=== PATIENT | female | born 1995 | race Caucasian/White ===

== ENCOUNTER 2023-08-08 12:46 | Outpatient (CLI) | payer MEDICAID | END 2023-08-08 12:47 | disposition critical access hospital (66) | LOC: EMS 12:46 | DX: U07.1 COVID-19 (principal) | CPT/HCPCS: A0425; A0427; A0999 ==

== ENCOUNTER 2023-08-08 13:06 | Emergency (ER) | payer MEDICAID ==
[2023-08-08] MEDS ORDERED: SODIUM CHLORIDE 0.9% 1,000 ML IV STA (13:20)
--- NOTE | 2023-08-08 13:21 | ED Physician Documentation ---
History of Present Illness - Stated complaint Stated Complaint: WEAKNESS/N/V - History obtained from History obtained from: Patient - Additonal information Additional information: 27-year-old woman with chronic depression and undiagnosed fatigue chronically and GI issues presents with malaise and fatigue and worse vomiting since being diagnosed with COVID a week ago. She did already complete paxlovid yesterday. On the way here received Zofran which was helpful for her nausea by EMS. She has no abdominal pain. She does complain of severe depression without SI. She has failed typical antidepressants. PD PAST MEDICAL HISTORY - Present Medications Home Medications: Ambulatory Orders Medication Instructions Recorded Confirmed Amitriptyline [Elavil] 25 mg PO HS #60 tablet 08/08/23 Ondansetron Odt [Zofran] 4 mg TL Q6H PRN #20 tablet 08/08/23 - Allergies Allergies/Adverse Reactions: Allergies Allergy/AdvReac Type Severity Reaction Status Date / Time acetaminophen Allergy Unknown Verified 08/08/23 13:22 PD ED PE NORMAL - Vitals Vital signs reviewed: Yes - General General: Alert and oriented X 3, Other (Tearful and despondent) - HEENT HEENT: Moist mucous membranes, Pharynx benign - Neck Neck: Supple, no meningeal sign, No bony TTP - Cardiac Cardiac: RRR, No murmur - Respiratory Respiratory: No respiratory distress, Clear bilaterally - Abdomen Abdomen: Normal bowel sounds, Soft, Non tender - Derm Derm: Normal color, Warm and dry - Extremities Extremities: No edema, No calf tenderness / cord - Neuro Neuro: Alert and oriented X 3, Normal speech Results - Vitals Vitals: Vital Signs - 24 hr 08/08/23 13:13 Temperature 36.8 C Heart Rate 68 Respiratory 18 Rate Blood Pressure 120/90 H O2 Saturation 99 Oxygen O2 Source Room air - Labs Labs: Laboratory Tests 08/08/23 13:45 Sodium 137 Potassium 3.1 L Chloride 105 Carbon Dioxide 25 Anion Gap 7.0 BUN 10 Creatinine 0.6 Estimated GFR (MDRD) 118 Glucose 90 Calcium 9.1 Magnesium 1.6 L Total Bilirubin 0.5 AST 15 ALT 13 Alkaline Phosphatase 43 Total Protein 7.5 Albumin 4.4 Globulin 3.1 Albumin/Globulin Ratio 1.4 Lipase 15 PD Medical Decision Making - ED course ED course: 27-year-old presents by ambulance for kind of a chronic GI issue that she has not yet been able to see a specialist for now with worsening superimposed due to being diagnosed with COVID a week ago. She also has severe depression. She was hydrated here with 2 L of crystalloid and feeling better. Passed a p.o. challenge and her labs were notable for hypomagnesemia and hypokalemia which were repleted orally and she did okay with that. I do think that starting amitriptyline for her chronic GI issues and depression is alcantar. No SI or HI. Departure - Departure Disposition: Home, Self Care Clinical Impression: Vomiting Condition: Good Record reviewed to determine appropriate education?: Yes Instructions: ED Nausea Vomiting Prescriptions: Amitriptyline [Elavil] 25 mg PO HS #60 tablet Ondansetron Odt [Zofran] 4 mg TL Q6H PRN #20 tablet PRN Reason: Nausea / Vomiting Comments: You are seen today for vomiting, and exacerbation of a chronic issue related to now being diagnosed with COVID. You do need to establish primary care and get a referral to see GI. In the meantime I am hopeful that taking the amitriptyline at night will be helpful for both her depression and the GI issues. Return if you worsen. Forms: PCP List
[2023-08-08] MEDS ORDERED: DEXTROSE 5%-LACTATED RINGERS 1,000 ML IV STA (13:24)
[2023-08-08 14:03] LABS: ALBUMIN 4.4 g/dL (3.2-5.5); ALBUMIN/GLOBULIN RATIO 1.4 (1.0-2.2); BILIRUBIN,TOTAL 0.5 mg/dL (0.2-1.0); CALCIUM 9.1 mg/dL (8.5-10.3); CREATININE 0.6 mg/dL (0.6-1.3); MAGNESIUM 1.6 mg/dL (1.7-2.3); POTASSIUM 3.1 mmol/L (3.5-4.5); TOTAL PROTEIN 7.5 g/dL (6.4-8.9)
[2023-08-08] MEDS ORDERED: MAGNESIUM OXIDE 400 MG TABLET PO STA (14:23)
[2023-08-08] MEDS ORDERED: POTASSIUM BICARB 25 MEQ TABLET PO STA (14:23)
[2023-08-08 15:30] VITALS: BP 111/62; O2SAT 100
== END 2023-08-08 15:26 | disposition home or self-care (01) ==
LOC: ED 13:06
DX: U07.1 COVID-19 (principal); R11.10 Vomiting, unspecified; F32.A Depression, unspecified; E83.42 Hypomagnesemia; E87.6 Hypokalemia
CPT/HCPCS: 36415; 80053; 83690; 83735; 99283; 99284; A9270